=== PATIENT | female | born 1990 | race African-American/Black ===

== ENCOUNTER 2016-11-12 10:35 | Inpatient (IN) | payer OTHER ==
[2016-11-12] MEDS ORDERED: BETAMET ACET/BETAMET NA PH 30 MG/5 ML VIAL IM ONE (11:30)
[2016-11-12 12:11] VITALS: BMI 37.5
[2016-11-12] MEDS ORDERED: LACTATED RINGERS SOLUTION 1,000 ML IV SCH (12:15)
--- NOTE | 2016-11-12 12:16 | HP ---
Past Medical History - Primary Care Physician PCP:: Basia Hudson - Admission Chief Complaint: 25 yrs , 28 weeks sent from the [facility] dept due to sonogram today reveals 28.2/7 weeks short cervix 0.34cm, , funneling 1.2x3.2cm ,Vx, Post placenta , , MADHAV 14.6 cm, Bpp8/8, , efw 2'11" History of Present Illness: care at , [facility] wt gain only 3 lbs . 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 Weeks Gestation by Dates: 28.2 ...EDC by Dates: 02/02/17 ...EDC by Sono: 02/02/17 Heme/Onc: No: Anemia, Sickle Cell Trait Infectious Disease: No: AIDS, HIV, STD's, Tuberculosis Psych: No: Addictions, Anxiety, Bipolar, Depression, Panic Endocrine: No: Diabetes Mellitus, Hypothyroidism - Past Surgical History Past Surgical History: Yes: None Hx Myomectomy: No Hx Transabdominal Cerclage: No - Alcohol/Substance Use Hx Alcohol Use: No History of Substance Use: reports: None - Social History History of Recent Travel: No Home Medications - Allergies Allergies/Adverse Reactions: Allergies Allergy/AdvReac Type Severity Reaction Status Date / Time No Known Allergies Allergy Verified 11/12/16 11:44 - Home Medications Home Medications: Ambulatory Orders Vit/Iron Fumarate/FA [ Tablet] 1 each PO DAILY 11/12/16 Physical Exam - Maternity Vital Signs: Vital Signs Temperature 98.5 F 11/12/16 10:45 Pulse Rate 107 H 11/12/16 10:45 Respiratory Rate 20 11/12/16 10:45 Blood Pressure 132/85 11/12/16 10:45 O2 Sat by Pulse Oximetry (%) Selected Entries 11/12/16 11:45 Temperature 98.5 F Pulse Rate 107 H Blood Pressure 132/85 Weight 219 lb Constitutional: Yes: Well Nourished, Obese Eyes: Yes: WNL HENT: Yes: WNL, Normocephalic Neck: Yes: WNL Cardiovascular: Yes: WNL, Regular Rate and Rhythm Lungs: Clear to auscultation Breast(s): Yes: WNL - Abdominal Exam/OB Fundal Height: 28 Number of Fetuses: Single Presentation: Vertex Contractions: No Monitor Mode: External Heart Rate (range): 140 Heart Rate Location: Midline Category: I Accelerations: Uniform Decelerations: None - Vaginal Exam/OB Vaginal Bleediing: No Speculum Exam: No Dilatation (cm): close Effacement (%): unefface Amniotic Membrane Status: Intact Presentation: Vertex/Position Station: -4 - Physical Exam Musculoskeletal: Yes: WNL Extremities: Yes: WNL. No: Calf Tenderness Edema: No Integumentary: Yes: WNL, Tattoos Deep Tendon Reflex Grade: Normal +2 ...Motor Strength: WNL Psychiatric: Yes: WNL, Alert, Oriented Problem List - Problems (1) 28 weeks gestation of Code(s): Z3A.28 - 28 WEEKS GESTATION OF (2) Short cervix in third trimester, antepartum Code(s): O26.873 - CERVICAL SHORTENING, THIRD TRIMESTER Assessment/Plan 25 yrs 28 weeks admitted due to Short Cervix & funnelling Betamthasone 12.5 mg IM given rx IV RL 1000 mi 125 ml/hr LABS not done since pt is being transferred to [facility] Pt is transferred to [facility] . accepted by MD donor technician Transfer by [facility]ulence today.
[2016-11-12 12:20] VITALS: TEMP 98.9
[2016-11-12 13:21] VITALS: BP 130/89; PULSE 88
== END 2016-11-12 13:15 | disposition short-term general hospital (02) | DRG 566 ==
LOC: JDEL 10:35 → JLDR 11:47
PROVIDERS: ADMIT Obstetrics & Gynecology; ATTEND Obstetrics & Gynecology
DX: O26.873 Cervical shortening, third trimester (principal); O10.013 Pre-existing essential hypertension complicating pregnancy, third trimester; Z3A.28 28 weeks gestation of pregnancy; Z91.14 Patient's other noncompliance with medication regimen
CPT/HCPCS: 96372

== ENCOUNTER 2019-12-04 10:31 | Emergency (ER) | payer OTHER ==
[2019-12-04 10:42] VITALS: TEMP 97.6; BMI 37.8
--- NOTE | 2019-12-04 11:21 | PDOC ---
History of Present Illness - General History Source: Patient Exam Limitations: No Limitations <Lea Rizzo - Last Filed: 12/04/19 14:40> <Brianna Valdez - Last Filed: 12/06/19 09:03> - General Chief Complaint: Vaginal Bleeding Stated Complaint: VAGINAL BLEEDING Time Seen by Provider: 12/04/19 10:50 Past History - Travel History Traveled outside of the country in the last 30 days: No Close contact w/someone who was outside of country & ill: No - Medical History Asthma: No Cancer: No Cardiac Disorders: No COPD: No Diabetes: No HTN: Yes Seizures: No Thyroid Disease: No - Reproductive History Is Patient Now?: No - Psycho-Social/Smoking History Smoking History: Current every day smoker Have you smoked in the past 12 months: Yes Number of Cigarettes Smoked Daily: 7 Information on smoking cessation initiated: Yes - Substance Abuse Hx (Audit-C & DAST Scrn) How often the patient has a drink containing alcohol: Monthly or less Number of drinks the patient has on a typical day: 1 or 2 How often the patient has six or more drinks on one occasion: Never Score: In Men: 4 or > Positive; In Women: 3 or > Positive: 1 Screen Result (Pos requires Nsg. Audit-10AR): Negative In the last yr the pt used illegal drug/Rx for NonMed reason: No Score: Yes response is considered Positive: 0 Screen Result (Positive result requires Nsg. DAST-10): Negative <Lea Rizzo - Last Filed: 12/04/19 14:40> <Brianna Valdez - Last Filed: 12/06/19 09:03> - Medical History Allergies/Adverse Reactions: Allergies Allergy/AdvReac Type Severity Reaction Status Date / Time No Known Allergies Allergy Verified 12/04/19 10:34 Home Medications: Ambulatory Orders Vit/Iron Fum/Folic AC [ Tablet] 1 each PO DAILY 11/12/16 Cephalexin Monohydrate [Keflex -] 500 mg PO BID #14 capsule 12/04/19 Review of Systems - Review of Systems Able to Perform ROS?: Yes Comments:: 12/04/19 11:13 CONSTITUTIONAL: Absent: fever, chills, diaphoresis, generalized weakness, malaise, loss of appetite HEENT: Absent: rhinorrhea, nasal congestion, throat pain, throat swelling, difficulty swallowing, mouth swelling, ear pain, eye pain, visual changes CARDIOVASCULAR: Absent: chest pain, loss of consciousness, palpitations, irregular heart rate, peripheral edema RESPIRATORY: Absent: cough, shortness of breath, dyspnea with exertion, orthopnea, wheezing, stridor, hemoptysis GASTROINTESTINAL: Absent: abdominal pain, abdominal distension, nausea, vomiting, diarrhea, constipation, melena, hematochezia GENITOURINARY: Present: vaginal bleeding Absent: dysuria, frequency, urgency, hesitancy, hematuria, flank pain, genital pain MUSCULOSKELETAL: Absent: myalgia, arthralgia, joint swelling SKIN: Absent: rash, itching, pallor HEMATOLOGIC/IMMUNOLOGIC: Absent: easy bleeding, easy bruising, lymphadenopathy, frequent infections ENDOCRINE: Absent: unexplained weight gain, unexplained weight loss, heat intolerance, cold intolerance NEUROLOGIC: Absent: headache, focal weakness or paresthesias, dizziness, unsteady gait, seizure, mental status changes, bladder or bowel incontinence PSYCHIATRIC: Absent: anxiety, depression, suicidal or homicidal ideation, hallucinations. Is the patient limited Eritrean proficient: No <Lea Rizzo - Last Filed: 12/04/19 14:40> *Physical Exam - Vital Signs Last Vital Signs Temp Pulse Resp BP Pulse Ox 97.6 F 94 H 18 158/110 H 100 12/04/19 10:34 12/04/19 10:34 12/04/19 10:34 12/04/19 10:34 12/04/19 10:34 - Physical Exam 12/04/19 11:14 GENERAL: Well developed, well nourished. Awake and alert. No acute distress. HEENT: Normocephalic, atraumatic. PERRLA, EOMI. No conjunctival pallor. Sclera are non- icteric. Moist mucous membranes. NECK: Supple. Full ROM. No lymphadenopathy. CARDIOVASCULAR: Regular rate and rhythm. Distal pulses are 2+ and symmetric. PULMONARY: No evidence of respiratory distress. Breathing comfortably on room air ABDOMINAL: Soft. Non-tender. Non-distended. No rebound or guarding. No organomegaly. Normoactive bowel sounds. MUSCULOSKELETAL Normal range of motion at all joints. No bony deformities or tenderness. No CVA tenderness. EXTREMITIES: No cyanosis. No clubbing. No edema. No calf tenderness. SKIN: Warm and dry. Normal capillary refill. No rashes. No jaundice. NEUROLOGICAL: Alert, awake, appropriate. Cranial nerves 2-12 intact. No deficits to light touch and temperature in face, upper extremities and lower extremities. No motor deficits in the in face, upper extremities and lower extremities. Normoreflexic in the upper and lower extremities. Normal speech. Toes are down-going bilaterally. Gait is normal without ataxia. PSYCHIATRIC: Cooperative. Good eye contact. Appropriate mood and affect. Pelvic: External genitalia normal without lesions. Vaginal vault is clear without blood or discharge. Cervix is long and closed. No cervical motion tenderness. Uterus is nontender and normal in size. Adnexa are nontender and without masses. <Lea Rizzo - Last Filed: 12/04/19 14:40> - Vital Signs Last Vital Signs Temp Pulse Resp BP Pulse Ox 97.6 F 77 15 157/90 99 12/04/19 10:34 12/04/19 14:58 12/04/19 14:58 12/04/19 14:58 12/04/19 14:58 <Brianna Valdez - Last Filed: 12/06/19 09:03> ED Treatment Course - LABORATORY CBC & Chemistry Diagram: 12/04/19 11:50 12/04/19 11:50 - RADIOLOGY Radiology Studies Ordered: Category Date Time Status TRANSVAGINAL US PREG [US] Stat Ultrasound 12/04/19 10:54 Ordered <Lea Rizzo - Last Filed: 12/04/19 14:40> - LABORATORY CBC & Chemistry Diagram: 12/04/19 11:50 12/04/19 11:50 - ADDITIONAL ORDERS Additional order review: 12/04/19 11:50 Gram Stain - Final Cervix Genital Culture - Preliminary NORMAL GENITAL [place] ISOLATED 12/04/19 13:30 Urine Culture - Final Urine - Urine Clean Catch Lactose Fermenting Neg Bacilli 12/04/19 11:50 RBC 4.73 MCV 79.7 L MCHC 32.5 RDW 17.7 H MPV 8.1 Neutrophils % 66.7 Lymphocytes % 23.0 Monocytes % 9.5 Eosinophils % 0.3 Basophils % 0.5 <Brianna Valdez - Last Filed: 12/06/19 09:03> Medical Decision Making - Medical Decision Making 12/04/19 11:17 The patient is a 28-year-old female, G4, , presents to the ER today for vaginal bleeding. She states she had a positive test last month. She states she has been bleeding for the last 4 days however today she soaked through her thompson so she came to the ER for evaluation. She denies nausea, vomiting, pelvic pain, back pain, fever. A/P: Vaginal bleeding and Labs including type and screen, transvaginal ordered Exam shows: Likely miscarriage given reports of increasing bleeding over the past 4 days. Reevaluate 12/04/19 14:40 Beta over 4000, urine with trace leukocytes. RH + Ultrasound read shows early IUP with true gestational sac. No heartbeat at this time. Measuring about 5 weeks We will treat for UTI at this time Discharge home with OB follow-up. I discussed the physical exam findings, ancillary test results and final diagnoses with the patient. I answered all of the patient's questions. The patient was satisfied with the care received and felt comfortable with the discharge plan and treatment plan. The Patient agrees to follow up with the primary care physician/specialist within 24-72 hours. Return precautions were given. <Lea Rizzo - Last Filed: 12/04/19 14:40> - Medical Decision Making I reviewed the case with the mid-level practitioner and agree with the mid-level practitioner's assessment, diagnosis and disposition. <Brianna Valdez - Last Filed: 12/06/19 09:03> Discharge - Discharge Information Problems reviewed: Yes - Admission No <Lea Rizzo - Last Filed: 12/04/19 14:40> <Brianna Valdez - Last Filed: 12/06/19 09:03> - Discharge Information Clinical Impression/Diagnosis: Vaginal bleeding affecting early UTI (urinary tract infection) Qualifiers: Urinary tract infection type: acute cystitis Hematuria presence: with hematuria Qualified Code(s): N30.01 - Acute cystitis with hematuria Condition: Stable Disposition: HOME - Additional Discharge Information Prescriptions: Cephalexin Monohydrate [Keflex -] 500 mg PO BID #14 capsule - Follow up/Referral Referrals: Ash Duncan MD [Primary Care Provider] - Jag De MD [Staff Physician] - - Patient Discharge Instructions Patient Printed Discharge Instructions: DI for Urinary Tract Infection (UTI), DI for Vaginal Bleeding During Additional Instructions: You were seen for your vaginal bleeding in early . Your ultrasound showed an early gestational sac at 5 weeks, 3 days. There is no heartbeat yet at this time however this is to be expected as it is an early . You also have a urinary tract infection. Please take the Keflex as directed for 1 week. Drink plenty of water. Please follow-up with your PLATE G[facility]GER in 1 week. If you do not have 1 1 has been provided to you. Return to the ER for increased vaginal bleeding, nausea, vomiting, abdominal pain or if you have any changes in your symptoms. - Post Discharge Activity
[2019-12-04 12:09] LABS: BASO % 0.5 % (0-2.0); EOS % 0.3 % (0-4.5); HEMATOCRIT 37.7 % (32.4-45.2); HEMOGLOBIN 12.3 GM/dL (10.7-15.3); MCH 25.9 pg (25.7-33.7); MCHC 32.5 g/dl (32.0-36.0); MEAN CELL VOLUME 79.7 fl (80-96); MEAN PLT VOLUME 8.1 fl (7.5-11.1); MONO % 9.5 % (3.8-10.2); NEUT % 66.7 % (42.8-82.8); PLATELET COUNT 258 K/MM3 (134-434); RBC 4.73 M/mm3 (3.60-5.2); RDW 17.7 % (11.6-15.6); WHITE BLOOD COUNT 4.9 K/mm3 (4.0-10.0)
[2019-12-04 12:48] LABS: ALBUMIN 3.8 g/dl (3.4-5.0); BILIRUBIN,TOTAL 0.2 mg/dL (0.2-1); BLOOD UREA NITROGEN 12.5 mg/dL (7-18); CALCIUM 9.1 mg/dL (8.5-10.1); CREATININE 0.8 mg/dL (0.55-1.3); POTASSIUM 4.1 mmol/L (3.5-5.1); TOT PROT 7.6 g/dl (6.4-8.2)
[2019-12-04 14:10] LABS: EPI CELLS >36 /uL (0-25.1); HYALINE CASTS 8 /uL (0-3.1); PH,URINE 6.5 (5.0-8.0); URINE APPEARANCE CLEAR; URINE BACTERIA 413 /uL (0-1359); URINE BILIRUBIN NEGATIVE (NEGATIVE); URINE COLOR YELLOW; URINE GLUCOSE (UA) NEGATIVE (NEGATIVE); URINE KETONE NEGATIVE (NEGATIVE); URINE LEUK ESTERASE TRACE (NEGATIVE); URINE NITRITE NEGATIVE (NEGATIVE); URINE PROTEIN TRACE (NEGATIVE); URINE RBC 15 /uL (0-23.9); URINE UROBILINOGEN 0.2 mg/dL (0.2-1.0); URINE WBC 18 /uL (0-25.8)
[2019-12-04 14:59] VITALS: BP 157/90; PULSE 77
== END 2019-12-04 14:59 | disposition home or self-care (01) ==
LOC: JER 10:31
DX: O26.851 Spotting complicating pregnancy, first trimester (principal); N30.01 Acute cystitis with hematuria
CPT/HCPCS: 36415; 76817-TC; 80053; 81003; 84702; 85025; 86850; 86900; 86901; 87070; 87077; 87086; 87205; 87491; 87591; 87661; 99284-25

== ENCOUNTER 2019-12-09 22:25 | Emergency (ER) | payer OTHER ==
[2019-12-09 22:34] VITALS: BP 165/116; PULSE 84; TEMP 97.8; BMI 39.4
--- OUTSIDE RECORDS SUMMARY | 2019-12-09 22:43 | XMS ---
:1990 Author Organization [facility] Support Name Relationship Address Phone DEJA Unavailable [address] [place] [address] [place] [address] [place] [address] [address] [place] [address] Re-disclosure Warning The records that you are about to access may contain information from federally- assisted alcohol or drug abuse programs. If such information is present, then the following federally mandated warning applies: This information has been disclosed to you from records protected by federal confidentiality rules (42 CFR part 2). The federal rules prohibit you from making any further disclosure of this information unless further disclosure is expressly permitted by the written consent of the person to whom it pertains or as otherwise permitted by 42 CFR part 2. A general authorization for the release of medical or other information is NOT sufficient for this purpose. The Federal rules restrict any use of the information to criminally investigate or prosecute any alcohol or drug abuse patient.The records that you are about to access may contain highly sensitive health information, the redisclosure of which is protected by Article 27-F of the [facility] Public Health law. If you continue you may haveaccess to information: Regarding HIV / AIDS; Provided by facilities licensed or operated by the [facility] Office of Mental Health; or Provided by the [facility] Office for People With Developmental Disabilities. If such information is present, then the following [facility] mandated warning applies: This information has been disclosed to you from confidential records which are protected by state law. State law prohibits you from making any further disclosure of this information without the specific written consent of the person to whom it pertains, or as otherwise permitted by law. Any unauthorized further disclosure in violation of state law may result in a fine or senior care sentence or both. A general authorization for the release of medical or other information is NOT sufficient authorization for further disclosure. Insurance Providers Payer name Policy type Policy ID Covered Covered constitution party's Policy P erin / Coverage constitution party ID relationship to [place] [facility] type [place] MEDICAID [id number] HMO Dental [id number] S [id number] [employer] [place] [id number] S [id number] Vision D [facility] [id number] S [id number] S Medicaid [facility] [id number] S [id number] Options [facility] Medicaid [id number] S [id number] Regular Clinic Visit [facility] Medicaid [id number] S [id number] N Managed Care
--- NOTE | 2019-12-09 23:22 | PDOC ---
History of Present Illness - General Chief Complaint: Vaginal Bleeding Stated Complaint: VAGINAL BLEEDING Time Seen by Provider: 12/09/19 23:13 - History of Present Illness Initial Comments: 12/09/19 23:20 29yo F presents with vaginal bleeding after an ultrasound days ago showed an IUP with no cardiac activity. Started passing clots yesterday, and she is going through 5pads/day. Endorses cramping but denies lightheadedness, dizziness. Past History - Medical History Allergies/Adverse Reactions: Allergies Allergy/AdvReac Type Severity Reaction Status Date / Time No Known Allergies Allergy Verified 12/04/19 10:34 Home Medications: Ambulatory Orders NK [No Known Home Medication] 12/10/19 Asthma: No Cancer: No Cardiac Disorders: No COPD: No Diabetes: No HTN: No Seizures: No Thyroid Disease: No - Reproductive History Is Patient Now?: Yes (#): 5 Para: 2 Therapeutic (s) & number: Yes (2) Spontaneous : 2 - Psycho-Social/Smoking History Smoking History: Never smoked Have you smoked in the past 12 months: Yes Number of Cigarettes Smoked Daily: 4 - Substance Abuse Hx (Audit-C & DAST Scrn) How often the patient has a drink containing alcohol: Never Score: In Men: 4 or > Positive; In Women: 3 or > Positive: 0 Screen Result (Pos requires Nsg. Audit-10AR): Negative Review of Systems - Review of Systems Able to Perform ROS?: Yes Is the patient limited Kyrgyz proficient: No Constitutional: No: Chills, Diaphoresis, Fever HEENTM: No: Symptoms Reported, Recent change in vision Respiratory: No: Cough, Shortness of Breath Cardiac (ROS): No: Chest Pain, Edema ABD/GI: Yes: Nausea. No: Poor Appetite, Vomiting : Yes: Pain (cramping). No: Burning, Dysuria, Urgency Musculoskeletal: Yes: Back Pain. No: Muscle Pain Integumentary: No: Erythema, Rash Neurological: No: Headache, Weakness Endocrine: No: Symptoms Reported Hematologic/Lymphatic: No: Symptoms Reported All Other Systems: Reviewed and Negative *Physical Exam - Vital Signs Last Vital Signs Temp Pulse Resp BP Pulse Ox 97.8 F 84 20 165/116 H 99 12/09/19 22:30 12/09/19 22:30 12/09/19 22:30 12/09/19 22:30 12/09/19 22:30 - Physical Exam General Appearance: Yes: Nourished, Appropriately Dressed, Obese. No: Apparent Distress HEENT: positive: EOMI, Normal Voice Neck: positive: Trachea midline, Supple. negative: Stridor Respiratory/Chest: positive: Lungs Clear, Normal Breath Sounds. negative: Chest Tender, Respiratory Distress Cardiovascular: positive: Regular Rhythm, Regular Rate Female Pelvic Exam: positive: normal external exam, cervical os closed (per palpation - will do US), vaginal bleeding (blood in the vault). negative: CMT Gastrointestinal/Abdominal: positive: Normal Bowel Sounds, Soft, Protuberent Musculoskeletal: positive: Normal Inspection. negative: CVA Tenderness Extremity: positive: Normal Capillary Refill, Normal Inspection, Normal Range of Motion Integumentary: positive: Normal Color, Dry, Warm Neurologic: positive: Fully Oriented, Alert, Normal Response ED Treatment Course - LABORATORY CBC & Chemistry Diagram: 12/09/19 23:32 Medical Decision Making - Medical Decision Making 12/09/19 23:24 w/ vaginal bleeding and passing clots most likely spontaneous -> US to look for retained products. Discharge - Discharge Information Problems reviewed: Yes Clinical Impression/Diagnosis: Miscarriage, Vagina bleeding Condition: Improved Disposition: HOME - Follow up/Referral Referrals: Niru Gonzales MD [Staff Physician] - Basia Hudson MD [Staff Physician] - Jag De MD [Staff Physician] - - Patient Discharge Instructions Patient Printed Discharge Instructions: DI for Miscarriage Additional Instructions: You were seen in the ER for vaginal bleeding. The ultrasound shows a miscarriage with some products of conception. These should pass. You will continue to have bleeding, which is normal. You can take ibuprofen or Tylenol for the cramping as needed. I recommend that you follow up with [facility]. Referral has been provided. Return to the ER if you are soaking more than 1 pad/hour, the cramping gets worse, or if any new or concerning symptom develops. Thank you - Post Discharge Activity Work/Back to School Note: Back to Work
--- NOTE | 2019-12-09 23:28 | PDOC ---
Attending Attestation - Resident Resident Name: Dylon Jones - ED Attending Attestation I have performed the following: I have examined & evaluated the patient, The case was reviewed & discussed with the resident, I agree w/resident's findings & plan - HPI HPI: 12/09/19 23:27 29yo F presents with vaginal bleeding after an ultrasound days ago showed an IUP with no cardiac activity. Started passing clots yesterday, and she is going through 5pads/day. Endorses cramping but denies lightheadedness, dizziness. - Physicial Exam PE: 12/09/19 23:27 Agree with the resident's HPI and PE as documented in the electronic medical record. NAD, well appearing, EOMI, PERRL, nl conjunctiva, anicteric; neck supple. lungs clear, RRR, abdomen soft nontender. no rebound, guarding. Back nontender. NORIEGA x4, no focal neuro deficits. No peripheral edema. normal color for ethnicity, WWP. pelvic exam done by resident, vault with blood, os closed, - Medical Decision Making 12/09/19 23:28 Vital Signs Temp Pulse Resp BP Pulse Ox 97.8 F 84 20 165/116 H 99 12/09/19 22:30 12/09/19 22:30 12/09/19 22:30 12/09/19 22:30 12/09/19 22:30 DDx VB: ectopic , miscarriage, demise, subchorionic hematoma, retained POC, normal first trimester bleeding, UTI in in . Fibroid uterus, vaginitis, infection, electrolyte/metabolic derangements, anemia. Rh positive, no rhogam indicated VS wnl, normotensive, no tachy or hypoxia/respiratory distress. abdomen benign on reeval and no peritoneal findings, no VB here, controlled Beta hcg TVUS s/o pending labs/imaging, likely miscarriage Discharge - Discharge Information Problems reviewed: Yes Clinical Impression/Diagnosis: Miscarriage, Vagina bleeding Condition: Improved Disposition: HOME - Follow up/Referral Referrals: Niru Gonzales MD [Staff Physician] - Basia Hudson MD [Staff Physician] - Jag De MD [Staff Physician] - - Patient Discharge Instructions Patient Printed Discharge Instructions: DI for Miscarriage Additional Instructions: You were seen in the ER for vaginal bleeding. The ultrasound shows a miscarriage with some products of conception. These should pass. You will continue to have bleeding, which is normal. You can take ibuprofen or Tylenol for the cramping as needed. I recommend that you follow up with [facility]. Referral has been provided. Return to the ER if you are soaking more than 1 pad/hour, the cramping gets worse, or if any new or concerning symptom develops. Thank you - Post Discharge Activity Work/Back to School Note: Back to Work
--- NOTE | 2019-12-09 23:59 | PDOC ---
*Physical Exam - Vital Signs Last Vital Signs Temp Pulse Resp BP Pulse Ox 97.8 F 84 20 165/116 H 99 12/09/19 22:30 12/09/19 22:30 12/09/19 22:30 12/09/19 22:30 12/09/19 22:30 - Physical Exam General Appearance: Yes: Nourished, Appropriately Dressed. No: Apparent Distress HEENT: positive: EOMI. negative: Pale Conjunctivae Gastrointestinal/Abdominal: positive: Normal Bowel Sounds, Soft. negative: Tender ED Treatment Course - LABORATORY CBC & Chemistry Diagram: 12/09/19 23:32 - RADIOLOGY Radiology Studies Ordered: Category Date Time Status TRANSVAGINAL US PREG [US] Stat Ultrasound 12/09/19 22:47 Ordered Medical Decision Making - Medical Decision Making 12/10/19 02:03 pt signed out to [place] [id number] presenting for vaginal bleeding with clots x2 days. Previous US on 5 days ago showed no heart activity. no anemia. bhcg . us shows miscarriage with retained products. pt having cramping but tolerated. using 5 pads/day. given obgyn f/u, given return precautions. discussed diagnosis with pt. note for work provided. Discharge - Discharge Information Problems reviewed: Yes Clinical Impression/Diagnosis: Miscarriage, Vagina bleeding Condition: Improved Disposition: HOME - Admission No - Follow up/Referral Referrals: Niru Gonzales MD [Staff Physician] - Basia Hudson MD [Staff Physician] - Jag De MD [Staff Physician] - - Patient Discharge Instructions Patient Printed Discharge Instructions: DI for Miscarriage Additional Instructions: You were seen in the ER for vaginal bleeding. The ultrasound shows a miscarriage with some products of conception. These should pass. You will continue to have bleeding, which is normal. You can take ibuprofen or Tylenol for the cramping as needed. I recommend that you follow up with [facility]. Referral has been provided. Return to the ER if you are soaking more than 1 pad/hour, the cramping gets worse, or if any new or concerning symptom develops. Thank you - Post Discharge Activity Work/Back to School Note: Back to Work
[2019-12-10 00:14] LABS: BASO % 0.2 % (0-2.0); EOS % 0.3 % (0-4.5); HEMATOCRIT 37.2 % (32.4-45.2); HEMOGLOBIN 12.3 GM/dL (10.7-15.3); LYMPH % 29.4 % (8-40); MCH 26.7 pg (25.7-33.7); MCHC 33.1 g/dl (32.0-36.0); MEAN CELL VOLUME 80.7 fl (80-96); MEAN PLT VOLUME 8.5 fl (7.5-11.1); MONO % 11.9 % (3.8-10.2); NEUT % 58.2 % (42.8-82.8); PLATELET COUNT 272 K/MM3 (134-434); RBC 4.61 M/mm3 (3.60-5.2); RDW 18.1 % (11.6-15.6); WHITE BLOOD COUNT 6.9 K/mm3 (4.0-10.0)
== END 2019-12-10 01:58 | disposition home or self-care (01) ==
LOC: JER 22:25
DX: O03.9 Complete or unspecified spontaneous abortion without complication (principal); N93.9 Abnormal uterine and vaginal bleeding, unspecified
CPT/HCPCS: 36415; 76817-TC; 84702; 85025; 99284-25

== ENCOUNTER 2021-01-16 14:15 | Inpatient (IN) | payer OTHER ==
[2021-01-16 15:14] VITALS: BMI 46.0
[2021-01-16] MEDS ORDERED: BUTORPHANOL TARTRATE 2 MG/ML VIAL IVPUSH ONE (15:16)
[2021-01-16] MEDS ORDERED: PROMETHAZINE HCL 25 MG/1 ML VIAL IVPUSH ONE (15:16)
[2021-01-16] MEDS ORDERED: DINOPROSTONE 10 MG VAGINAL SUPPOSITORY VG ONE (15:16)
[2021-01-16 17:07] LABS: BASO % 0.2 % (0-2.0); EOS % 0.6 % (0-4.5); HEMATOCRIT 35.3 % (32.4-45.2); HEMOGLOBIN 11.6 GM/dL (10.7-15.3); LYMPH % 18.7 % (8-40); MCH 27.3 pg (25.7-33.7); MCHC 32.8 g/dl (32.0-36.0); MEAN CELL VOLUME 83.1 fl (80-96); MEAN PLT VOLUME 7.7 fl (7.5-11.1); MONO % 8.3 % (3.8-10.2); NEUT % 72.2 % (42.8-82.8); PLATELET COUNT 255 10^3/uL (134-434); RBC 4.25 M/mm3 (3.60-5.2); RDW 15.2 % (11.6-15.6); WHITE BLOOD COUNT 6.7 K/mm3 (4.0-10.0)
[2021-01-16 17:15] LABS: BLOOD UREA NITROGEN 6.9 mg/dL (7-18)
[2021-01-16 17:19] LABS: CREATININE 0.6 mg/dL (0.55-1.3)
[2021-01-16 17:27] LABS: INR 1.02 (0.83-1.09); PROTHROMBIN TIME (PATIENT) 11.9 SEC (9.7-13.0)
[2021-01-16 17:30] LABS: ACTIVATED PTT 27.6 SECONDS (25.2-36.5)
[2021-01-16 18:11] LABS: HIV INTERPRETATION NEGATIVE (NEGATIVE)
[2021-01-16] MEDS ORDERED: LABETALOL HCL 200 MG TABLET (FP) ONE (22:45)
[2021-01-16] MEDS: LABETALOL HCL 200 MG TABLET (FP) PO PRN (22:56)
[2021-01-17] MEDS ORDERED: OXYTOCIN 30 UNITS in 0.9% NS 30 UNIT/500 ML INFUS.BAG IVPB ONE (04:59)
[2021-01-17] MEDS: OXYTOCIN 30 UNITS in 0.9% NS 30 UNIT/500 ML INFUS.BAG IVPB SCH (05:00)
[2021-01-17] MEDS: DEXTROSE 5%-LACTATED RINGERS 1,000 ML IV SCH (05:04)
[2021-01-17] MEDS ORDERED: PROMETHAZINE HCL 25 MG/1 ML VIAL ONE (05:35)
[2021-01-17] MEDS ORDERED: BUTORPHANOL TARTRATE 2 MG/ML VIAL ONE (05:35)
[2021-01-17] MEDS ORDERED: AMPICILLIN SODIUM 2 GM VIAL IVPB ONE (08:00)
[2021-01-17] MEDS ORDERED: LABETALOL HCL 200 MG TABLET (FP) ONE (08:25)
[2021-01-17] MEDS: LABETALOL HCL 200 MG TABLET (FP) PO PRN (08:30)
[2021-01-17] MEDS ORDERED: AMPICILLIN SODIUM 2 GM VIAL ONE (08:34)
[2021-01-17] MEDS ORDERED: FENTANYL/BUPIVACAINE/NS/PF - PCEA - 50 ML DISP.SYRIN EP ONE (08:58)
[2021-01-17] MEDS: ELECTROLYTE-148 SOLN 1,000 ML IV SCH (09:00)
[2021-01-17 11:09] LABS: HIV INTERPRETATION NEGATIVE (NEGATIVE)
[2021-01-17] MEDS ORDERED: AMPICILLIN SODIUM 1 GM VIAL IVPB ONE (12:00)
[2021-01-17] MEDS ORDERED: LIDOCAINE HCL 1% PRESERVATIVE FREE - 30ML VIAL ONE (12:18)
[2021-01-17] MEDS ORDERED: OXYTOCIN 20 UNITS in 0.9% NS 20 UNIT/1,000 ML INFUS.BAG IV ONE ×2 (12:19→15:56)
[2021-01-17] MEDS: OXYTOCIN 20 UNITS in 0.9% NS 20 UNIT/1,000 ML INFUS.BAG IV SCH (12:40)
[2021-01-17] MEDS ORDERED: WITCH HAZEL 50% (TUCKS) 40 PAD/JAR PAD TP PRN (13:16)
[2021-01-17] MEDS ORDERED: BENZOCAINE 28 GM HEMORRHOIDAL OINTMENT TP PRN (13:16)
[2021-01-17] MEDS ORDERED: METHYLERGONOVINE MALEATE 0.2 MG/1 ML AMP IM PRN (13:16)
[2021-01-17] MEDS ORDERED: BISACODYL 10 MG SUPP.RECT RC PRN (13:16)
[2021-01-17] MEDS ORDERED: BENZOCAINE 20% 57 GM BOTTLE TP PRN (13:16)
[2021-01-17 13:22] LABS: CORD BASE EXCESS -5.9 mmol/L (0-2); CORD HCO3 22.3 mmHg (20-29); CORD pH 7.233 (7.14-7.44)
[2021-01-17 13:24] LABS: CORD BASE EXCESS -1.3 mmol/L (0-2); CORD HCO3 24.7 mmHg (20-29); CORD PCO2 45.9 mmHg (30-78); CORD pH 7.348 (7.14-7.44)
[2021-01-17] MEDS ORDERED: BUPIVACAINE HCL/PF 0.25% (2.5MG/ML) 10 ML VIAL ONE (14:47)
[2021-01-17] MEDS: IBUPROFEN 600 MG TABLET (FP) PO PRN (20:01)
[2021-01-17] MEDS: FERROUS SO4 325 MG TABLET (FP) PO SCH (21:24)
[2021-01-17] MEDS ORDERED: oxyCODONE HCL 5 MG TABLET ONE (21:45)
[2021-01-17] MEDS ORDERED: oxyCODONE HCL 5 MG TABLET PO ONE (21:45)
[2021-01-18] MEDS: IBUPROFEN 600 MG TABLET (FP) PO PRN ×4 (00:36→22:39)
[2021-01-18 07:23] LABS: BASO % 0.4 % (0-2.0); EOS % 1.4 % (0-4.5); HEMATOCRIT 32.7 % (32.4-45.2); HEMOGLOBIN 10.7 GM/dL (10.7-15.3); LYMPH % 25.5 % (8-40); MCH 27.6 pg (25.7-33.7); MCHC 32.8 g/dl (32.0-36.0); MEAN PLT VOLUME 7.9 fl (7.5-11.1); MONO % 9.4 % (3.8-10.2); NEUT % 63.3 % (42.8-82.8); PLATELET COUNT 227 10^3/uL (134-434); RBC 3.89 M/mm3 (3.60-5.2); RDW 15.3 % (11.6-15.6); WHITE BLOOD COUNT 8.6 K/mm3 (4.0-10.0)
[2021-01-18] MEDS: NIFEdipine E.R. 30 MG TABLET PO SCH (09:32)
[2021-01-18] MEDS: PRENATAL VITAMINS W/ FOLIC ACID TABLET (FP) PO SCH (09:32)
[2021-01-18] MEDS: ACETAMINOPHEN 325 MG TABLET (FP) PO PRN ×2 (09:32→22:39)
[2021-01-18] MEDS: FERROUS SO4 325 MG TABLET (FP) PO SCH ×2 (09:33→22:08)
[2021-01-18] MEDS ORDERED: SENNOSIDES/DOCUSATE COMBO (SENNA PLUS) TABLET (UD) PO PRN (22:00)
[2021-01-18] MEDS: DEXTROSE 5%-LACTATED RINGERS 1,000 ML IV SCH (23:47)
[2021-01-18] MEDS: ELECTROLYTE-148 SOLN 1,000 ML IV SCH (23:48)
[2021-01-18] MEDS: OXYTOCIN 20 UNITS in 0.9% NS 20 UNIT/1,000 ML INFUS.BAG IV SCH (23:48)
[2021-01-18] MEDS: OXYTOCIN 30 UNITS in 0.9% NS 30 UNIT/500 ML INFUS.BAG IVPB SCH (23:49)
[2021-01-19] MEDS: ACETAMINOPHEN 325 MG TABLET (FP) PO PRN (07:11)
[2021-01-19 09:53] VITALS: BP 143/101; PULSE 106; TEMP 98.7
[2021-01-19] MEDS: NIFEdipine E.R. 30 MG TABLET PO SCH (09:58)
[2021-01-19] MEDS: FERROUS SO4 325 MG TABLET (FP) PO SCH (09:58)
[2021-01-19] MEDS: PRENATAL VITAMINS W/ FOLIC ACID TABLET (FP) PO SCH (09:58)
[2021-01-19] MEDS: IBUPROFEN 600 MG TABLET (FP) PO PRN (10:01)
== END 2021-01-19 13:30 | disposition home or self-care (01) | DRG 560 ==
LOC: JLDR 14:15 → J3W 01-17 16:20
PROVIDERS: ADMIT Obstetrics & Gynecology; ATTEND Obstetrics & Gynecology
PROC: 3E0P7VZ Introduction of Hormone into Female Reproductive, Via Natural or Artificial Opening (ICD-10-PCS; 2021-01-16)
PROC: 10E0XZZ Delivery of Products of Conception, External Approach (ICD-10-PCS; principal; 2021-01-17)
DX: O10.92 Unspecified pre-existing hypertension complicating childbirth (principal); O99.214 Obesity complicating childbirth; E66.01 Morbid (severe) obesity due to excess calories; Z3A.37 37 weeks gestation of pregnancy; Z37.0 Single live birth; O69.81X0 Labor and delivery complicated by cord around neck, without compression, not applicable or unspecified
CPT/HCPCS: 36415; 36600; 59409; 80048; 82803; 84156; 84550; 85025; 85610; 85730; 86762; 86780; 86850; 86900; 86901; 87389; C9803; U0003; U0005

== ENCOUNTER 2024-10-22 00:38 | Emergency (ER) | payer OTHER ==
[2024-10-22 00:46] VITALS: BP 128/87; PULSE 102; RESP 18; TEMP 98.4; BMI 41.1
[2024-10-22] MEDS: ACETAMINOPHEN 500 MG TABLET (FP) PO ONE (01:55)
[2024-10-22] MEDS: INDOMETHACIN 50 MG CAPSULE PO ONE (02:27)
[2024-10-22 02:50] LABS: ABSOLUTE IMMATURE GRANULOCYTES 0.03 x10^3/uL (0.0-0.031); BASOPHILS # 0.03 x10^3/uL (0.01-0.08); EOSINOPHIL % 0.5 % (0.7-5.8); EOSINOPHILS # 0.04 x10^3/uL (0.04-0.36); MCHC 32.3 g/dl (32.2-35.5); MEAN CELL VOLUME 86.8 fl (79.4-94.8); MEAN PLT VOLUME 10.1 fl (9.4-12.3); MONOCYTE # 0.90 x10^3/uL (0.24-0.86); MONOCYTE % 11.7 % (4.7-12.5); RDW 15.2 % (12.1-16.8)
[2024-10-22 03:14] LABS: TOT PROT 7.0 g/dl (6.4-8.2)
[2024-10-22 03:15] LABS: CO2 26.0 mmol/L (21-32)
[2024-10-22 03:16] LABS: ALK PHOS 63.0 U/L (40-150)
[2024-10-22 03:19] LABS: CREATININE 1.23 mg/dL (0.55-1.3); SGOT/AST 21.0 U/L (5-34); SGPT/ALT 16.0 U/L (0-55)
[2024-10-22 03:23] LABS: GLUCOSE,RANDOM 95.0 mg/dL (74-106)
[2024-10-22] MEDS ORDERED: POTASSIUM CHLORIDE TABS 20 MEQ TABLET.ER (FP) PO ONE (03:27)
[2024-10-22] MEDS: POTASSIUM CHLORIDE TABS 20 MEQ TABLET.ER (FP) PO ONE (03:29)
[2024-10-22 03:56] LABS: ERYTHROCYTE SEDIMENTATION RATE 32 mm/hr (0-20)
[2024-10-22] MEDS ORDERED: COLCHICINE 0.6 MG TAB ONE (04:05)
[2024-10-22] MEDS: COLCHICINE 0.6 MG TAB PO ONE (04:07)
== END 2024-10-22 04:08 | disposition home or self-care (01) ==
LOC: JER 00:38
DX: M10.9 Gout, unspecified (principal); M79.644 Pain in right finger(s); M79.89 Other specified soft tissue disorders
CPT/HCPCS: 36415; 73110-TC-RT-FY; 73130-TC-RT-FY; 80053; 84550; 85025; 85651; 86140; 99284-25